=== PATIENT | male | born 1965 | race Caucasian/White ===

== ENCOUNTER 2018-08-17 14:18 | Emergency (ER) | payer BC ==
[~2018-08-17] VITALS: Ht 157.5 cm; Wt 84.8 kg
[2018-08-17 14:34] VITALS: Ht 157.5 cm; Wt 84.8 kg
[2018-08-17 15:55] VITALS: BP 139/95
== END 2018-08-17 16:32 | disposition home or self-care (01) ==
LOC: ED 14:18
DX: M54.32 Sciatica, left side (principal)
CPT/HCPCS: J1885; J2270; Q0092